=== PATIENT | female | born 1980 | race Two or more races ===

== ENCOUNTER 2020-11-30 14:59 | Inpatient (IN) | payer OTHER ==
[2020-11-30 16:19] VITALS: BMI 21.9
[2020-11-30] MEDS ORDERED: BISMUTH SUBSALICYLATE 524 MG/30 ML UD PO PRN (16:54)
[2020-11-30] MEDS ORDERED: MENTHOL/PHENOL 1 EACH UD MM PRN (16:54)
[2020-11-30] MEDS ORDERED: MAGNESIUM HYDROX 2400MG/30ML ORAL SUSPENSION 30 ML CUP PO PRN (16:54)
[2020-11-30] MEDS ORDERED: ACETAMINOPHEN 325 MG TABLET (FP) PO PRN ×2 (16:54)
[2020-11-30] MEDS ORDERED: MAGNESIUM CITRATE 300 ML BOTTLE PO PRN (16:54)
[2020-11-30] MEDS ORDERED: ONDANSETRON *ODT* 4 MG TABLET SL PRN (16:54)
[2020-11-30] MEDS ORDERED: MAG HYDROX/AL HYDROX/SIMETH 30 ML UNIT-DOSE CUP PO PRN (16:54)
[2020-11-30] MEDS: chlordiazePOXIDE HCL 25 MG CAPSULE PO SCH ×2 (18:20→22:13)
[2020-11-30] MEDS: MELATONIN 5 MG TABLETS PO SCH (22:13)
[2020-11-30] MEDS: hydrOXYzine PAMOATE 25 MG CAPSULE (FP) PO PRN (22:13)
[2020-11-30] MEDS: THIAMINE HCL 100 MG TABLET (FP) PO SCH (22:14)
[2020-12-01] MEDS: chlordiazePOXIDE HCL 25 MG CAPSULE PO SCH ×4 (06:12→22:16)
[2020-12-01] MEDS: PRENATAL VITAMINS W/ FOLIC ACID TABLET (FP) PO SCH (10:04)
[2020-12-01] MEDS: VENLAFAXINE HCL 75 MG E.R. CAPSULES PO SCH (12:22)
[2020-12-01 12:34] LABS: HEMATOCRIT 38.6 % (32.4-45.2); HEMOGLOBIN 13.1 GM/dL (10.7-15.3); MCH 32.6 pg (25.7-33.7); MCHC 33.8 g/dl (32.0-36.0); MEAN CELL VOLUME 96.3 fl (80-96); MEAN PLT VOLUME 8.4 fl (7.5-11.1); PLATELET COUNT 261 K/MM3 (134-434); RBC 4.01 M/mm3 (3.60-5.2); RDW 16.6 % (11.6-15.6); WHITE BLOOD COUNT 5.3 K/mm3 (4.0-10.0)
[2020-12-01 12:56] LABS: POTASSIUM 3.4 mmol/L (3.5-5.1)
[2020-12-01 13:06] LABS: BLOOD UREA NITROGEN 8.5 mg/dL (7-18); CALCIUM 9.1 mg/dL (8.5-10.1)
[2020-12-01 13:08] LABS: ALBUMIN 3.8 g/dl (3.4-5.0); BILIRUBIN,TOTAL 1.4 mg/dL (0.2-1); TOT PROT 6.4 g/dl (6.4-8.2)
[2020-12-01 13:09] LABS: CREATININE 0.6 mg/dL (0.55-1.3)
[2020-12-01] MEDS: GABAPENTIN 300 MG CAPSULE PO SCH ×2 (15:14→22:13)
[2020-12-01] MEDS ORDERED: POTASSIUM CHLORIDE TABS 20 MEQ TABLET.ER (FP) PO ONE (16:08)
[2020-12-01] MEDS: chlordiazePOXIDE HCL 25 MG CAPSULE PO PRN ×2 (18:46→22:13)
[2020-12-01] MEDS: IBUPROFEN 400 MG TABLET (FP) PO PRN (18:47)
[2020-12-01] MEDS: hydrOXYzine PAMOATE 25 MG CAPSULE (FP) PO PRN (18:47)
[2020-12-01] MEDS: MELATONIN 5 MG TABLETS PO SCH (22:15)
[2020-12-01] MEDS: THIAMINE HCL 100 MG TABLET (FP) PO SCH (22:16)
[2020-12-02] MEDS: chlordiazePOXIDE HCL 25 MG CAPSULE PO SCH ×4 (05:41→22:15)
[2020-12-02] MEDS: GABAPENTIN 300 MG CAPSULE PO SCH ×3 (05:41→22:15)
[2020-12-02] MEDS: hydrOXYzine PAMOATE 25 MG CAPSULE (FP) PO PRN ×4 (05:42→22:15)
[2020-12-02] MEDS: POTASSIUM CHLORIDE TABS 20 MEQ TABLET.ER (FP) PO SCH (10:17)
[2020-12-02] MEDS: VENLAFAXINE HCL 75 MG E.R. CAPSULES PO SCH (10:17)
[2020-12-02] MEDS: PRENATAL VITAMINS W/ FOLIC ACID TABLET (FP) PO SCH (10:18)
[2020-12-02] MEDS: METHOCARBAMOL 500 MG TABLET PO PRN (10:18)
[2020-12-02] MEDS: IBUPROFEN 400 MG TABLET (FP) PO PRN (21:05)
[2020-12-02] MEDS: THIAMINE HCL 100 MG TABLET (FP) PO SCH (22:15)
[2020-12-02] MEDS: MELATONIN 5 MG TABLETS PO SCH (22:15)
[2020-12-03] MEDS ORDERED: chlordiazePOXIDE HCL 10 MG CAPSULE PO PRN
[2020-12-03] MEDS: GABAPENTIN 300 MG CAPSULE PO SCH ×3 (06:09→22:03)
[2020-12-03] MEDS: chlordiazePOXIDE HCL 10 MG CAPSULE PO SCH ×4 (06:09→22:05)
[2020-12-03] MEDS: hydrOXYzine PAMOATE 25 MG CAPSULE (FP) PO PRN ×2 (06:10→10:08)
[2020-12-03] MEDS: POTASSIUM CHLORIDE TABS 20 MEQ TABLET.ER (FP) PO SCH (10:07)
[2020-12-03] MEDS: VENLAFAXINE HCL 75 MG E.R. CAPSULES PO SCH (10:07)
[2020-12-03] MEDS: METHOCARBAMOL 500 MG TABLET PO PRN (10:08)
[2020-12-03] MEDS: PRENATAL VITAMINS W/ FOLIC ACID TABLET (FP) PO SCH (10:08)
[2020-12-03 14:07] LABS: SARS-CoV-2 NAA Not Detected (Not Detected)
[2020-12-03] MEDS: THIAMINE HCL 100 MG TABLET (FP) PO SCH (22:04)
[2020-12-03] MEDS: MELATONIN 5 MG TABLETS PO SCH (22:06)
[2020-12-04] MEDS: hydrOXYzine PAMOATE 25 MG CAPSULE (FP) PO PRN ×5 (05:07→22:21)
[2020-12-04] MEDS: GABAPENTIN 300 MG CAPSULE PO SCH ×3 (05:08→22:21)
[2020-12-04] MEDS: chlordiazePOXIDE HCL 10 MG CAPSULE PO SCH ×2 (05:08→17:42)
[2020-12-04] MEDS: METHOCARBAMOL 500 MG TABLET PO PRN ×2 (10:14→22:21)
[2020-12-04] MEDS: PRENATAL VITAMINS W/ FOLIC ACID TABLET (FP) PO SCH (10:14)
[2020-12-04] MEDS: VENLAFAXINE HCL 75 MG E.R. CAPSULES PO SCH (10:14)
[2020-12-04 21:58] VITALS: BP 121/78; PULSE 80; TEMP 96.4
[2020-12-04] MEDS: MELATONIN 5 MG TABLETS PO SCH (22:21)
[2020-12-04] MEDS: THIAMINE HCL 100 MG TABLET (FP) PO SCH (22:21)
[2020-12-05] MEDS ORDERED: chlordiazePOXIDE HCL 10 MG CAPSULE PO ONE (05:00)
[2020-12-05] MEDS: GABAPENTIN 300 MG CAPSULE PO SCH (06:21)
[2020-12-05] MEDS: hydrOXYzine PAMOATE 25 MG CAPSULE (FP) PO PRN (06:21)
== END 2020-12-05 09:13 | disposition home or self-care (01) | DRG 897 ==
LOC: YASAS 14:59 → Y6N 17:11
PROVIDERS: ADMIT Allergy & Immunology; ATTEND Allergy & Immunology
PROC: HZ2ZZZZ Detoxification Services for Substance Abuse Treatment (ICD-10-PCS; principal; 2020-11-30)
DX: F10.230 Alcohol dependence with withdrawal, uncomplicated (principal); F33.1 Major depressive disorder, recurrent, moderate; F10.220 Alcohol dependence with intoxication, uncomplicated; F10.280 Alcohol dependence with alcohol-induced anxiety disorder; F10.282 Alcohol dependence with alcohol-induced sleep disorder; F10.24 Alcohol dependence with alcohol-induced mood disorder; F90.9 Attention-deficit hyperactivity disorder, unspecified type; Z87.19 Personal history of other diseases of the digestive system; Z98.890 Other specified postprocedural states
CPT/HCPCS: 36415; 80053; 81025; 85027; 86780; C9803; U0003; U0005

== ENCOUNTER 2021-05-30 16:11 | Inpatient (IN) | payer OTHER ==
[2021-05-30 18:35] VITALS: BMI 21.2
[2021-05-30] MEDS ORDERED: BISMUTH SUBSALICYLATE 524 MG/30 ML PO PRN (20:06)
[2021-05-30] MEDS ORDERED: IBUPROFEN 400 MG TABLET (FP) PO PRN (20:06)
[2021-05-30] MEDS ORDERED: ONDANSETRON *ODT* 4 MG TABLET SL PRN (20:06)
[2021-05-30] MEDS ORDERED: ACETAMINOPHEN 325 MG TABLET (FP) PO PRN ×2 (20:06)
[2021-05-30] MEDS ORDERED: MENTHOL/PHENOL 1 EACH UD MM PRN (20:06)
[2021-05-30] MEDS ORDERED: MAGNESIUM HYDROX 2400MG/30ML ORAL SUSPENSION 30 ML CUP PO PRN (20:06)
[2021-05-30] MEDS ORDERED: MAG HYDROX/AL HYDROX/SIMETH 30 ML UNIT-DOSE CUP PO PRN (20:06)
[2021-05-30] MEDS ORDERED: MAGNESIUM CITRATE 300 ML BOTTLE PO PRN (20:06)
[2021-05-30] MEDS ORDERED: MELATONIN 5 MG TABLETS PO SCH (22:00)
[2021-05-30] MEDS: THIAMINE HCL 100 MG TABLET (FP) PO SCH (23:33)
[2021-05-30] MEDS: diazePAM 5 MG TABLET PO PRN (23:33)
[2021-05-30] MEDS: diazePAM 5 MG TABLET PO SCH (23:35)
[2021-05-31] MEDS: diazePAM 5 MG TABLET PO SCH ×5 (05:24→23:27)
[2021-05-31] MEDS: METHOCARBAMOL 500 MG TABLET PO PRN ×2 (10:03→17:26)
[2021-05-31] MEDS: PRENATAL VITAMINS W/ FOLIC ACID TABLET (FP) PO SCH (10:03)
[2021-05-31 11:12] LABS: CALCIUM 9.2 mg/dL (8.5-10.1)
[2021-05-31 11:13] LABS: ALBUMIN 3.7 g/dl (3.4-5.0); BLOOD UREA NITROGEN 7.3 mg/dL (7-18)
[2021-05-31 11:15] LABS: CREATININE 0.4 mg/dL (0.55-1.3)
[2021-05-31 11:16] LABS: TOT PROT 6.7 g/dl (6.4-8.2)
[2021-05-31 11:17] LABS: BILIRUBIN,TOTAL 1.1 mg/dL (0.2-1)
[2021-05-31] MEDS: VENLAFAXINE HCL 150 MG E.R. CAPSULE PO SCH (12:28)
[2021-05-31] MEDS: GABAPENTIN 300 MG CAPSULE PO SCH ×2 (13:01→22:11)
[2021-05-31 13:19] LABS: HEMOGLOBIN 13.4 GM/dL (10.7-15.3); MCH 33.8 pg (25.7-33.7); MCHC 34.4 g/dl (32.0-36.0); MEAN CELL VOLUME 98.1 fl (80-96); MEAN PLT VOLUME 7.7 fl (7.5-11.1); PLATELET COUNT 255 10^3/uL (134-434); RBC 3.98 M/mm3 (3.60-5.2); RDW 15.6 % (11.6-15.6); WHITE BLOOD COUNT 5.5 K/mm3 (4.0-10.0)
[2021-05-31] MEDS ORDERED: POTASSIUM CHLORIDE ORAL LIQUID 20 MEQ/15 ML PO ONE ×2 (13:30→17:30)
[2021-05-31] MEDS: diazePAM 5 MG TABLET PO PRN ×2 (17:25→21:26)
[2021-05-31] MEDS: traZODone HCL 50 MG TABLET (FP) PO SCH (22:11)
[2021-05-31] MEDS: THIAMINE HCL 100 MG TABLET (FP) PO SCH (22:11)
[2021-06-01] MEDS: GABAPENTIN 300 MG CAPSULE PO SCH ×3 (05:53→22:06)
[2021-06-01] MEDS: diazePAM 5 MG TABLET PO SCH ×3 (05:54→22:06)
[2021-06-01] MEDS: VENLAFAXINE HCL 150 MG E.R. CAPSULE PO SCH (10:09)
[2021-06-01] MEDS: PRENATAL VITAMINS W/ FOLIC ACID TABLET (FP) PO SCH (10:09)
[2021-06-01] MEDS: diazePAM 5 MG TABLET PO PRN (10:10)
[2021-06-01] MEDS: traZODone HCL 50 MG TABLET (FP) PO SCH (22:06)
[2021-06-01] MEDS: THIAMINE HCL 100 MG TABLET (FP) PO SCH (22:06)
[2021-06-02] MEDS: GABAPENTIN 300 MG CAPSULE PO SCH ×3 (06:02→22:25)
[2021-06-02] MEDS: diazePAM 5 MG TABLET PO SCH ×2 (06:02→17:45)
[2021-06-02] MEDS: PRENATAL VITAMINS W/ FOLIC ACID TABLET (FP) PO SCH (10:12)
[2021-06-02] MEDS: VENLAFAXINE HCL 150 MG E.R. CAPSULE PO SCH (10:12)
[2021-06-02] MEDS: diazePAM 5 MG TABLET PO PRN (10:12)
[2021-06-02] MEDS: THIAMINE HCL 100 MG TABLET (FP) PO SCH (22:24)
[2021-06-02] MEDS: traZODone HCL 50 MG TABLET (FP) PO SCH (22:24)
[2021-06-03] MEDS: GABAPENTIN 300 MG CAPSULE PO SCH (05:55)
[2021-06-03] MEDS ORDERED: diazePAM 5 MG TABLET PO ONE (06:00)
[2021-06-03] MEDS: VENLAFAXINE HCL 150 MG E.R. CAPSULE PO SCH (09:00)
[2021-06-03] MEDS: PRENATAL VITAMINS W/ FOLIC ACID TABLET (FP) PO SCH (09:01)
[2021-06-03 09:17] VITALS: BP 105/74; PULSE 96; TEMP 97.8
== END 2021-06-03 09:24 | disposition home or self-care (01) | DRG 897 ==
LOC: YASAS 16:11 → Y6N 20:48
PROVIDERS: ADMIT Allergy & Immunology; ATTEND Allergy & Immunology
PROC: HZ2ZZZZ Detoxification Services for Substance Abuse Treatment (ICD-10-PCS; principal; 2021-05-30)
DX: F10.230 Alcohol dependence with withdrawal, uncomplicated (principal); F33.1 Major depressive disorder, recurrent, moderate; F10.280 Alcohol dependence with alcohol-induced anxiety disorder; F10.282 Alcohol dependence with alcohol-induced sleep disorder; F10.24 Alcohol dependence with alcohol-induced mood disorder; F90.9 Attention-deficit hyperactivity disorder, unspecified type; Z87.891 Personal history of nicotine dependence; Z87.19 Personal history of other diseases of the digestive system
CPT/HCPCS: 36415; 80053; 81025; 84132; 84436; 84443; 84479; 85027; 86780; 93005; 93010; C9803; U0003; U0005

== ENCOUNTER 2021-08-08 18:25 | Inpatient (IN) | payer OTHER ==
[2021-08-08] MEDS ORDERED: IBUPROFEN 400 MG TABLET (FP) PO PRN (19:17)
[2021-08-08] MEDS ORDERED: BISMUTH SUBSALICYLATE 524 MG/30 ML PO PRN (19:17)
[2021-08-08] MEDS ORDERED: ONDANSETRON *ODT* 4 MG TABLET SL PRN (19:17)
[2021-08-08] MEDS ORDERED: MAGNESIUM CITRATE 300 ML BOTTLE PO PRN (19:17)
[2021-08-08] MEDS ORDERED: MAG HYDROX/AL HYDROX/SIMETH 30 ML UNIT-DOSE CUP PO PRN (19:17)
[2021-08-08] MEDS ORDERED: MENTHOL/PHENOL 1 EACH UD MM PRN (19:17)
[2021-08-08] MEDS ORDERED: MAGNESIUM HYDROX 2400MG/30ML ORAL SUSPENSION 30 ML CUP PO PRN (19:17)
[2021-08-08] MEDS ORDERED: ACETAMINOPHEN 325 MG TABLET (FP) PO PRN ×2 (19:17)
[2021-08-08] MEDS ORDERED: chlordiazePOXIDE HCL 25 MG CAPSULE PO PRN (19:22)
[2021-08-08 21:11] VITALS: BMI 20.9
[2021-08-08] MEDS: THIAMINE HCL 100 MG TABLET (FP) PO SCH (22:02)
[2021-08-08] MEDS: MELATONIN 5 MG TABLETS PO SCH (22:03)
[2021-08-08] MEDS: chlordiazePOXIDE HCL 25 MG CAPSULE PO SCH (22:03)
[2021-08-09] MEDS: chlordiazePOXIDE HCL 25 MG CAPSULE PO SCH ×4 (05:54→22:20)
[2021-08-09] MEDS: PRENATAL VITAMINS W/ FOLIC ACID TABLET (FP) PO SCH (11:14)
[2021-08-09] MEDS: VENLAFAXINE HCL 150 MG E.R. CAPSULE PO SCH (11:54)
[2021-08-09] MEDS: ARIPiprazole 5 MG TABLET PO SCH (11:54)
[2021-08-09 12:15] LABS: HEMATOCRIT 36.9 % (32.4-45.2); HEMOGLOBIN 12.6 GM/dL (10.7-15.3); MCH 34.1 pg (25.7-33.7); MCHC 34.2 g/dl (32.0-36.0); MEAN CELL VOLUME 99.7 fl (80-96); MEAN PLT VOLUME 7.9 fl (7.5-11.1); PLATELET COUNT 273 10^3/uL (134-434); RDW 17.5 % (11.6-15.6); WHITE BLOOD COUNT 4.7 K/mm3 (4.0-10.0)
[2021-08-09 12:23] LABS: ALBUMIN 3.3 g/dl (3.4-5.0)
[2021-08-09 12:26] LABS: CREATININE 0.5 mg/dL (0.55-1.3)
[2021-08-09 12:27] LABS: BILIRUBIN,TOTAL 0.9 mg/dL (0.2-1); TOT PROT 5.9 g/dl (6.4-8.2)
[2021-08-09] MEDS ORDERED: POTASSIUM CHLORIDE ORAL LIQUID 20 MEQ/15 ML PO ONE (15:08)
[2021-08-09] MEDS: hydrOXYzine PAMOATE 25 MG CAPSULE (FP) PO PRN ×2 (18:04→22:21)
[2021-08-09] MEDS: POTASSIUM CHLORIDE ORAL LIQUID 20 MEQ/15 ML PO SCH (22:20)
[2021-08-09] MEDS: traZODone HCL 100 MG TABLET (FP) PO SCH (22:20)
[2021-08-09] MEDS: THIAMINE HCL 100 MG TABLET (FP) PO SCH (22:20)
[2021-08-09] MEDS: MELATONIN 5 MG TABLETS PO SCH (22:20)
[2021-08-10] MEDS: chlordiazePOXIDE HCL 25 MG CAPSULE PO SCH ×4 (06:15→22:19)
[2021-08-10] MEDS: hydrOXYzine PAMOATE 25 MG CAPSULE (FP) PO PRN ×3 (06:16→22:19)
[2021-08-10] MEDS: VENLAFAXINE HCL 150 MG E.R. CAPSULE PO SCH (10:27)
[2021-08-10] MEDS: ARIPiprazole 5 MG TABLET PO SCH (10:27)
[2021-08-10] MEDS: PRENATAL VITAMINS W/ FOLIC ACID TABLET (FP) PO SCH (10:27)
[2021-08-10] MEDS: POTASSIUM CHLORIDE ORAL LIQUID 20 MEQ/15 ML PO SCH (10:27)
[2021-08-10] MEDS: THIAMINE HCL 100 MG TABLET (FP) PO SCH (22:19)
[2021-08-10] MEDS: traZODone HCL 100 MG TABLET (FP) PO SCH (22:19)
[2021-08-10] MEDS: METHOCARBAMOL 500 MG TABLET PO PRN (22:19)
[2021-08-10] MEDS: MELATONIN 5 MG TABLETS PO SCH (22:19)
[2021-08-11] MEDS ORDERED: chlordiazePOXIDE HCL 10 MG CAPSULE PO PRN
[2021-08-11] MEDS: chlordiazePOXIDE HCL 10 MG CAPSULE PO SCH ×4 (06:18→22:09)
[2021-08-11] MEDS: hydrOXYzine PAMOATE 25 MG CAPSULE (FP) PO PRN ×3 (06:18→22:11)
[2021-08-11] MEDS: ARIPiprazole 5 MG TABLET PO SCH (10:09)
[2021-08-11] MEDS: VENLAFAXINE HCL 150 MG E.R. CAPSULE PO SCH (10:09)
[2021-08-11] MEDS: PRENATAL VITAMINS W/ FOLIC ACID TABLET (FP) PO SCH (10:09)
[2021-08-11] MEDS: MELATONIN 5 MG TABLETS PO SCH (22:09)
[2021-08-11] MEDS: traZODone HCL 100 MG TABLET (FP) PO SCH (22:09)
[2021-08-11] MEDS: THIAMINE HCL 100 MG TABLET (FP) PO SCH (22:09)
[2021-08-11] MEDS: METHOCARBAMOL 500 MG TABLET PO PRN (22:10)
[2021-08-12] MEDS: chlordiazePOXIDE HCL 10 MG CAPSULE PO SCH ×2 (06:03→18:00)
[2021-08-12] MEDS: PRENATAL VITAMINS W/ FOLIC ACID TABLET (FP) PO SCH (10:23)
[2021-08-12] MEDS: hydrOXYzine PAMOATE 25 MG CAPSULE (FP) PO PRN ×3 (10:25→22:13)
[2021-08-12] MEDS: ARIPiprazole 5 MG TABLET PO SCH (10:25)
[2021-08-12] MEDS: VENLAFAXINE HCL 150 MG E.R. CAPSULE PO SCH (10:25)
[2021-08-12] MEDS: MELATONIN 5 MG TABLETS PO SCH (22:11)
[2021-08-12] MEDS: traZODone HCL 100 MG TABLET (FP) PO SCH (22:11)
[2021-08-12] MEDS: THIAMINE HCL 100 MG TABLET (FP) PO SCH (22:11)
[2021-08-13] MEDS ORDERED: chlordiazePOXIDE HCL 10 MG CAPSULE PO ONE (05:00)
[2021-08-13 09:29] VITALS: BP 94/67; PULSE 82; TEMP 97.1
[2021-08-13] MEDS: VENLAFAXINE HCL 150 MG E.R. CAPSULE PO SCH (10:11)
[2021-08-13] MEDS: ARIPiprazole 5 MG TABLET PO SCH (10:11)
[2021-08-13] MEDS: PRENATAL VITAMINS W/ FOLIC ACID TABLET (FP) PO SCH (10:11)
== END 2021-08-13 11:30 | disposition home or self-care (01) | DRG 897 ==
LOC: YASAS 18:25 → Y3N 20:45
PROVIDERS: ADMIT Allergy & Immunology; ATTEND Allergy & Immunology
PROC: HZ2ZZZZ Detoxification Services for Substance Abuse Treatment (ICD-10-PCS; principal; 2021-08-08)
DX: F10.230 Alcohol dependence with withdrawal, uncomplicated (principal); F33.1 Major depressive disorder, recurrent, moderate; F10.24 Alcohol dependence with alcohol-induced mood disorder; F90.9 Attention-deficit hyperactivity disorder, unspecified type; Z86.69 Personal history of other diseases of the nervous system and sense organs; Z56.0 Unemployment, unspecified
CPT/HCPCS: 36415; 80053; 81025; 84132; 85027; 86780; C9803; U0003; U0005